=== PATIENT | female | born 1980 | race Asian ===

== ENCOUNTER → 2016-09-20 | Outpatient (CLI) | payer BC ==
[~2016-09-20] MED LIST: ALLEGRA ALLERGY60 MG PO; CLARITIN REDITA10 MG PO; FERROUS SU325 MG/TAB PO; MOTRIN 200200 MG/TAB PO; NORCO 325 MG-51 TAB PO; PREDNISONE20 MG PO; PRENATAL VITAMI1 TA5 PO; TYLENOL 325MG325 MG PO; TYLENOL 500MG500 MG PO; ZYRTEC 10MG10 MG PO
== END ==
LOC: COL.RAD 11:26
DX: H71.21 Cholesteatoma of mastoid, right ear (principal); H67.1 Otitis media in diseases classified elsewhere, right ear

== ENCOUNTER → 2016-11-14 | Outpatient (REF) | LOC: WSOH 13:43 | DX: Z01.89 Encounter for other specified special examinations (principal) ==

== ENCOUNTER → 2023-10-24 | Outpatient (CLI) | payer OTHER ==
[~2023-10-24] MED LIST changes: +CELEXA 20MG20 MG/TAB PO; +COZAAR 50MG50 MG/TAB PO
== END ==
LOC: MC.RAD 08:48
DX: Z12.31 Encounter for screening mammogram for malignant neoplasm of breast (principal)